=== PATIENT | male | born 2005 | race Caucasian/White ===

== ENCOUNTER 2023-06-01 03:20 | Emergency (ER) | payer OTHER ==
[~2023-06-01] VITALS: Ht 172.7 cm; Wt 68.0 kg
[2023-06-01 03:25] VITALS: BP 122/76; TEMP 98.3
[2023-06-01 03:54] VITALS: O2SAT 98
== END 2023-06-01 05:55 ==
LOC: ER 03:28
DX: Z02.89 Encounter for other administrative examinations (principal)